=== PATIENT | female | born 1970 | race Hispanic/Latino ===

== ENCOUNTER 2023-03-20 10:48 | Outpatient (CLI) | payer OTHER | END 2023-03-20 10:49 | disposition home or self-care (01) | LOC: RAD 10:48 | PROVIDERS: ATTEND Student in an Organized Health Care Education/Training Program | DX: R13.10 Dysphagia, unspecified (principal); R63.30 Feeding difficulties, unspecified | CPT/HCPCS: 74230 ==

== ENCOUNTER 2023-03-24 17:14 | Emergency (ER) | payer SELFPAY ==
[2023-03-24] MEDS ORDERED: Ketorolac Tromethamine 30 MG/ML VIAL ONE (18:18)
[2023-03-24 19:55] LABS: SARS-CoV-2 NAA Rapid Test Not Detected (NotDetected)
== END 2023-03-24 20:40 | disposition home or self-care (01) ==
LOC: ERS 17:14
DX: B37.0 Candidal stomatitis (principal)
CPT/HCPCS: 96374; J1885